=== PATIENT | female | born 1980 | race Caucasian/White ===

== ENCOUNTER → 2016-08-14 | Outpatient (CLI) | payer OTHER ==
[~2016-08-14] MED LIST: AMOXICILLIN 50500 MG PO; CEFDINIR300 MG PO; NAPROSYN500 M1 PO; NORCO 325 MG-51 TAB PO; PREDNISONE10 MG PO; ZITHROMAX 250M250 MG PO
== END ==
LOC: RAD 13:50
DX: M25.522 Pain in left elbow (principal)

== ENCOUNTER 2016-10-13 | Emergency (ER) | payer MEDICAID ==
[~2016-10-13] MED LIST changes: -CEFDINIR300 MG PO; -NAPROSYN500 M1 PO; -PREDNISONE10 MG PO
[2016-10-13] MEDS ORDERED: NAPROSYN500 M1 PO (01:39)
[2016-10-13] MEDS ORDERED: CEFDINIR300 MG PO (02:07)
[2016-10-13] MEDS ORDERED: PREDNISONE10 MG PO (02:07)
[2016-10-13 02:22] VITALS: BP 105/62
== END 2016-10-13 02:22 | disposition home or self-care (01) ==
LOC: ED
DX: J20.9 Acute bronchitis, unspecified (principal); F17.210 Nicotine dependence, cigarettes, uncomplicated; R07.89 Other chest pain; R07.81 Pleurodynia; R06.02 Shortness of breath
CPT/HCPCS: J1885

== ENCOUNTER → 2016-11-13 | Outpatient (CLI) | payer MEDICAID ==
[~2016-11-13] MED LIST changes: +CEFDINIR300 MG PO; +NAPROSYN500 M1 PO; +PREDNISONE10 MG PO
== END ==
LOC: LAB 12:45
DX: H92.12 Otorrhea, left ear (principal); B37.89 Other sites of candidiasis

== ENCOUNTER 2019-12-17 13:42 | Emergency (ER) | payer SELFPAY ==
[~2019-12-17] VITALS: Ht 167.6 cm; Wt 55.9 kg
[2019-12-17] MEDS ORDERED: NAPROXEN SODIU220 MG PO (13:56)
[2019-12-17 14:12] LABS: EOS # 0.2 (0.04-0.40); EOS % 2.8 % (1.0-5.0); HEMATOCRIT 41.5 % (37.0-47.0); HEMOGLOBIN 14.4 g/dL (12.5-16.0); LYMPH# 2.6 (1.50-4.00); MEAN CELL VOLUME 87 fl (78-100); MEAN CORPUSCULAR HEMOGLOBIN 30 pg (27-31); MEAN CORPUSCULAR HGB CONC 35 g/dL (33-37); MEAN PLATELET VOLUME 9.9 fl (7.4-10.4); MONO # 0.5 (0.20-0.80); NEU # 4.2 (1.40-6.50); PLATELET COUNT 345 K/mm3 (130-400); RED CELL DISTRIBUTION WIDTH 12.8 % (11.5-14.5); WHITE BLOOD COUNT 7.5 K/mm3 (4.8-10.8)
[2019-12-17 14:21] LABS: ALBUMIN 4.2 g/dL (3.5-5.0)
[2019-12-17 14:24] LABS: TOTAL PROTEIN 7.2 g/dL (6.4-8.3)
[2019-12-17 14:26] LABS: TOTAL BILIRUBIN 0.4 mg/dL (0.2-1.2)
[2019-12-17 15:25] LABS: URINE APPEARANCE CLEAR; URINE COLOR YELLOW
[2019-12-17 15:26] LABS: URINE BILIRUBIN NEGATIVE (NEGATIVE); URINE BLOOD TRACE (NEGATIVE); URINE GLUCOSE NEGATIVE (NEGATIVE); URINE KETONE NEGATIVE (NEGATIVE); URINE LEUKOCYTE ESTERASE NEGATIVE (NEGATIVE); URINE NITRATE NEGATIVE (NEGATIVE); URINE PROTEIN(semi-quant) TRACE mg/dL (NEGATIVE); URINE UROBILINOGEN NORMAL (NORMAL); URINE WBC 0-1 /hpf (0-3)
[2019-12-17] MEDS ORDERED: MACROBID 100 M100 MG PO (15:47)
[2019-12-17] MEDS ORDERED: ULTRAM50 M1 PO (15:47)
[2019-12-17 16:11] VITALS: BP 122/86
== END 2019-12-17 16:12 | disposition home or self-care (01) ==
LOC: ED 13:42
PROVIDERS: Nurse Practitioner Primary Care
DX: R10.9 Unspecified abdominal pain (principal); F17.210 Nicotine dependence, cigarettes, uncomplicated
CPT/HCPCS: Q9967

== ENCOUNTER 2024-05-30 15:53 | Emergency (ER) | payer SELFPAY ==
[~2024-05-30] VITALS: Ht 167.6 cm; Wt 57.7 kg
[~2024-05-30 15:53] MED LIST changes: +MACROBID 100 M100 MG PO; +NAPROXEN SODIU220 MG PO; +ULTRAM50 M1 PO
[2024-05-30 16:46] LABS: BASO # 0.02 K/mm3 (0.02-0.10); EOS # 0.12 K/mm3 (0.04-0.40); EOS % 1.1 % (1.0-5.0); HEMATOCRIT 43.4 % (37.0-47.0); HEMOGLOBIN 14.7 g/dL (12.5-16.0); LYMPH# 2.39 K/mm3 (1.50-4.00); MEAN CELL VOLUME 88 fl (78-100); MEAN CORPUSCULAR HEMOGLOBIN 30 pg (27-31); MEAN CORPUSCULAR HGB CONC 34 g/dL (33-37); MEAN PLATELET VOLUME 9.2 fl (7.4-10.4); MONO # 0.53 K/mm3 (0.20-0.80); NEU # 7.54 K/mm3 (1.40-6.50); PLATELET COUNT 451 K/mm3 (130-400); RED BLOOD COUNT 4.93 M/mm3 (4.10-5.30); RED CELL DISTRIBUTION WIDTH 12.7 % (11.5-14.5); WHITE BLOOD COUNT 10.6 K/mm3 (4.8-10.8)
[2024-05-30 16:47] LABS: ALBUMIN 4.2 g/dL (3.5-5.0)
[2024-05-30 16:49] LABS: CALCIUM 9.8 mg/dL (8.3-10.5)
[2024-05-30 16:50] LABS: TOTAL PROTEIN 8.1 g/dL (6.4-8.3)
[2024-05-30 16:52] LABS: TOTAL BILIRUBIN 0.4 mg/dL (0.2-1.2)
[2024-05-30] MEDS ORDERED: ZITHROMAX 250M250 MG PO (17:15)
[2024-05-30] MEDS ORDERED: PREDNISONE20 MG PO (17:15)
[2024-05-30] MEDS ORDERED: PROAIR HFA0.09 MG/AC IH (17:15)
[2024-05-30 17:31] VITALS: BP 141/81
== END 2024-05-30 17:36 | disposition home or self-care (01) ==
LOC: ED 15:53
PROVIDERS: Nurse Practitioner
DX: J40 Bronchitis, not specified as acute or chronic (principal); F17.210 Nicotine dependence, cigarettes, uncomplicated